=== PATIENT | male | born 1955 | race African-American/Black ===

== ENCOUNTER 2019-11-10 09:24 | Emergency (ER) | payer MEDICAID ==
[~2019-11-10] VITALS: Ht 180.3 cm; Wt 83.9 kg
--- NOTE | 2019-11-10 09:24 | NUR ---
PT PLACED IN BED 6 BY EMS.
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
[2019-11-10] MEDS ORDERED: KETOROLAC 15 MG/ML VIAL IM ONE (09:35)
[2019-11-10 09:37] VITALS: BP 157/105
[2019-11-10 10:07] LABS: BASOPHILS # (AUTO) 0.1 K/uL (0.00-0.22); BASOPHILS % (AUTO) 1.1 % (0.0-2.0); EOSINOPHILS # (AUTO) 0.1 K/uL (0-0.4); EOSINOPHILS % (AUTO) 1.2 % (0.0-4.0); HEMOGLOBIN 14.4 g/dL (12.0-18.0); LYMPHOCYTES # (AUTO) 1.7 K/uL (2.0-11.5); LYMPHOCYTES % (AUTO) 18.1 % (20.5-51.1); MEAN CORPUSCULAR HEMOGLOBIN 28 pg (27-31); MEAN CORPUSCULAR HGB CONC 33 g/dL (33-37); MEAN CORPUSCULAR VOLUME 86.7 fL (80-94); MONOCYTES # (AUTO) 0.5 K/uL (0.8-1.0); MONOCYTES % (AUTO) 4.7 % (1.7-9.3); NEUTROPHILS # (AUTO) 7.2 K/uL (1.8-7.7); NEUTROPHILS % (AUTO) 74.9 % (42.2-75.2); PLATELET COUNT (AUTO) 157 K/uL (140-450); RED BLOOD CELL COUNT(AUTO) 5.08 MIL/uL (4.20-6.10); RED CELL DISTRIBUTION WIDTH 14.9 % (11.6-13.7); WHITE BLOOD COUNT (AUTO) 9.6 K/uL (4.8-10.8)
[2019-11-10 10:40] LABS: ALBUMIN 4.2 g/dL (3.4-5.0); ANION GAP 18.2 (8-16); CARBON DIOXIDE 22.1 mmol/L (21-32); POTASSIUM 4.3 mmol/L (3.5-5.1); TOTAL BILIRUBIN 0.3 mg/dL (0.0-1.0)
--- NOTE | 2019-11-10 11:20 | NUR ---
MED AT BEDSIDE, PT CONTINUES TO C/O 04/26 PAIN AND NOW STATES HE IS HAVING STOMACH PAIN 04/26
[2019-11-10 11:42] VITALS: BP 128/68
== END 2019-11-10 11:40 | disposition home or self-care (01) ==
LOC: MED 09:24
DX: G89.29 Other chronic pain (principal); M79.604 Pain in right leg; M79.605 Pain in left leg; R10.2 Pelvic and perineal pain
CPT/HCPCS: 36415; 80053; 85025; 96372; 99283; J1885